=== PATIENT | male | born 1950 | race Caucasian/White ===

== ENCOUNTER 2016-11-10 07:58 | Day surgery (SDC) | payer BC, OTHER ==
[~2016-11-10 07:58] MED LIST: CLINDAMYCIN 900 MG/DEXTROSE 50 ML IV ONE; DEXAMETHASONE 10 MG/ML VIAL IVP ONE; LIDO/EPI 1% **Not for Epidural 20 ML MDV ONE
[2016-11-10] MEDS ORDERED: LIDOCAINE 1% 2 ML INJ ID PRN (08:08)
[2016-11-10] MEDS ORDERED: NS 1,000 ML IV ONE (08:16)
--- NOTE | 2016-11-10 08:22 | PDHPUP ---
History & Physical Update H&P update statement: This history and physical update is based on an assessment of the patient which was completed after admission or registration (within 24 hours), but prior to the surgery/procedure.
--- NOTE | 2016-11-10 08:29 | CPEKG ---
Heart Rate: 79 RR Interval: 759 P-R Interval: 180 QRSD Interval: 164 QT Interval: 436 QTC Interval: 500 P [place]: 72 QRS [place]: -40 T Wave [place]: 21 EKG Severity - ABNORMAL ECG - EKG Impression: SINUS RHYTHM EKG Impression: RBBB AND LAFB EKG Impression: PROBABLE RIGHT VENTRICULAR HYPERTROPHY Electronically Signed By: Iggy Baumann 10-Nov-2016 16:09:23
[2016-11-10] MEDS ORDERED: ALBUTEROL 3 ML DEYVIAL IH ONE (08:35)
[2016-11-10] MEDS ORDERED: CLINDAMYCIN 900 MG/DEXTROSE/50 ML BAG IV ONE (08:37)
--- NOTE | 2016-11-10 08:39 | PDANEPAE ---
ANE History of Present Illness 66 year old male with lesion on vocal cord. ANE Past Medical History Past Medical History: 66 yo male with multi medical problems including: COPD on 4 L O2 continuous NGHIA - does not use his CPAP machine h/o ND in the h/o CHF in 2013 DONALD - Cr 1.9 in 07/04 in setting of PNA, unknown baseline Cr chronic pain on chronic opioid use x many years - spinal herniated discs cervical and lumbar - Cardiovascular History Hx Hypertension: Yes Hx Arrhythmias: Yes Hx Chest Pain: Yes Hx Coronary Artery / Peripheral Vascular Disease: No Hx CHF / Valvular Disease: Yes Hx Palpitations: Yes Cardiovascular History Comment: INTERMITTENT HEART PALPITATIONS. ND S. 04/24/13 CHF - Pulmonary History Hx COPD: Yes Hx Asthma/Reactive Airway Disease: Yes Hx Recent Upper Respiratory Infection: Yes Hx Oxygen in Use at Home: Yes O2 in Use at Home (L/minute): 4 AT REST WITH ACTIVITY 5 CONCENTRATOR Hx Sleep Apnea: Yes Sleep Apnea Screening Result - Last Documented: Positive Pulmonary History Comment: PNEUMONIA 06/2016 AT [facility] - Neurologic History Hx Cerebrovascular Accident: No Hx Seizures: No Hx Dementia: No - Endocrine History Hx Diabetes: No - Renal History Hx Renal Disorders: Yes Renal History Comment: Cr 1.9 in 07/04 - Liver History Hx Hepatic Disorders: No - Neurological & Psychiatric Hx Hx Neurological and Psychiatric Disorders: No - Cancer History Hx Cancer: Yes Cancer History Comment: SKIN - GI History Hx Gastrointestinal Disorders: Yes Gastrointestinal History Comment: GERD - Other Health History Other Health History: ANEMIA. 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 - Chronic Pain History Chronic Pain: Yes (CERVICAL) - Surgical History Prior Surgeries: NONE ANE Review of Systems - Exercise capacity METS (RN): 2 METS - Systems Respiratory: Reports: shortness of breath (chronic) Skin: Reports: lesions (skin cancers) ANE Patient History - Allergies Allergies/Adverse Reactions: No Known Allergies Allergy (Unverified 10/27/16 12:06) - Home Medications Home medications: home medication list seen and reviewed Home Medications: Advair 100/50 (*) BID 10/27/16 [Last Taken Unknown] Amlodipine Besylate DAILY 10/27/16 [Last Taken Unknown] Clonidine PRN 10/27/16 [Last Taken Unknown] Ferrous Sulfate DAILY 10/27/16 [Last Taken Unknown] GABAPENTIN TID 10/27/16 [Last Taken Unknown] Herbal Drugs DAILY 10/27/16 [Last Taken Unknown] Krill Oil DAILY 10/27/16 [Last Taken Unknown] Losartan Potassium DAILY 10/27/16 [Last Taken Unknown] Magnesium Oxide 500 mg DAILY 10/27/16 [Last Taken Unknown] Omeprazole DAILY 10/27/16 [Last Taken Unknown] Oxycodone HCl QID 10/27/16 [Last Taken Unknown] Spiriva Inhaler (RX) DAILY 10/27/16 [Last Taken Unknown] Ventolin Hfa PRN 10/27/16 [Last Taken Unknown] - NPO status NPO Status: no food or drink >8 hours - Anes Hx Anes Hx: no prior problems - Smoking Hx Smoking Status: Former smoker - Family Anes Hx Family Anes Hx: neg - N/A Family Hx Anesthesia Complications: NONE ANE Labs/Vital Signs - Labs - CBC WBC: h/o anemia, no current CBC - Vital Signs Vital Signs: reviewed preoperatively; see RN documention for details Height: 172.72 cm Weight: 77.111 kg
[2016-11-10] MEDS ORDERED: DEXAMETHASONE 10 MG/ML VIAL ONE (08:42)
[2016-11-10 08:50] VITALS: PULSE 80
[2016-11-10] MEDS ORDERED: REMIFENTANIL HCL 1 MG VIAL ONE (08:50)
[2016-11-10] MEDS ORDERED: PROPOFOL/EMULSION 500 MG/50 ML BOTTLE IV ONE (08:50)
[2016-11-10] MEDS ORDERED: ROCURONIUM 100 MG/10 ML VIAL ONE (08:51)
[2016-11-10] MEDS ORDERED: PROPOFOL 200 MG/20 ML VIAL ONE (08:53)
[2016-11-10] MEDS ORDERED: fentaNYL 100 MCG/2 ML INJ ONE (08:58)
[2016-11-10 09:07] LABS: ANION GAP 12 mEq/L (8-16); CALCIUM 9.2 mg/dL (8.5-10.4); CARBON DIOXIDE 26 mEq/l (22-31); CHLORIDE 102 mEq/L (97-110); CREATININE 1.6 mg/dL (0.7-1.3); GLOMERULAR FILTRATION RATE 43; GLUCOSE 95 mg/dL (70-100); POTASSIUM 4.8 mEq/L (3.5-5.2); SODIUM 140 mEq/L (134-144)
[2016-11-10] MEDS ORDERED: PHENYLEPHRINE HCL 100 MCG/ML SYR ONE (09:34)
[2016-11-10] MEDS ORDERED: SUGAMMADEX SODIUM 200 MG/2 ML VIAL IVP ONE ×2 (09:45)
[2016-11-10] MEDS ORDERED: PROMETHAZINE HCL 25 MG/ML INJ IVP PRN (09:53)
[2016-11-10] MEDS ORDERED: NALOXONE HCL 0.4 MG/ML INJ IVP PRN (09:53)
[2016-11-10] MEDS ORDERED: ACETAMINOPHEN 500 MG TAB PO PRN (09:53)
[2016-11-10] MEDS ORDERED: LR 500 ML IV PRN (09:53)
[2016-11-10] MEDS ORDERED: OXYCODONE/APAP 5/325 TAB PO PRN (09:53)
[2016-11-10] MEDS ORDERED: fentaNYL 100 MCG/2 ML INJ IVP PRN (09:53)
[2016-11-10] MEDS ORDERED: ONDANSETRON 4 MG/2 ML VIAL IVP PRN (09:53)
[2016-11-10] MEDS ORDERED: IPRATROPIUM/ALBUTEROL 3 ML DEYVIAL IH PRN (09:54)
--- NOTE | 2016-11-10 10:24 | POSTANESTH ---
Post Anesthetic Evaluation Cardiovascular Status: Normal, Stable Respiratory Status: Normal, Stable Level of Consciousness/Mental Status: Can Participate in Eval, Alert and Oriented Pain Control: Adequate, Prn Tx Ordered Nausea/Vomiting Control: Adequate, Prn Tx Ordered Complications Possibly Related to Anesthesia: None Noted
[2016-11-10 10:58] VITALS: TEMP 97.7
[2016-11-10 11:33] VITALS: BP 131/66; RESP 18; O2SAT 93
--- NOTE | 2016-11-11 18:13 | GOP ---
[f rep st] OPERATIVE REPORT DATE OF OPERATION: 11/10/2016 SURGEON: Mirza Hagan MD ANESTHESIA: General. PREOPERATIVE DIAGNOSIS: Right vocal cord lesion. POSTOPERATIVE DIAGNOSIS: Right vocal cord lesion. PROCEDURE PERFORMED: 1. Direct laryngoscopy. 2. Suspension microlaryngoscopy with excision of right vocal cord lesion. FINDINGS: The patient's oropharynx, hypopharynx and larynx were all evaluated closely. No other ab normalities or lesions were visible or palpable aside from the right vocal cord lesion. SPECIMENS: Right vocal cord lesion. ESTIMATED BLOOD LOSS: Minimal. INDICATIONS: The patient is a 66-year-old man who came in complaining of some left-sided neck pain. He had a surgical procedure done elsewhere and the anesthesiologist noted abnormal appearance of t he right vocal cord. This was evaluated in my office and there was concern for possible cancer. He presents for further evaluation and excisional biopsy. DESCRIPTION OF PROCEDURE: The patient was taken to the OR, positively identified, placed on monitor s and general anesthesia was induced. An Aquaplast dental guard was fashioned, soaked in hot water and then formed over the front teeth to help protect the dentition. The patient was placed in the s niffing position. I then used a Dedo laryngoscope to examine the oral cavity, oropharynx, and hypop harynx. No abnormalities were located. The piriform sinuses were closely evaluated and no abnormal ities were seen. Palpation of the base of tongue was unremarkable. At this point, the patient was placed in suspension and the vocal cord lesion was closely examined. I then injected 0.5 cc of 1% lidocaine with 1:100,000 epinephrine to balloon the lesion off the und erlying vocalis muscle. Using microlaryngoscopy instruments, I then excised the lesion with a very close margin of normal-appearing tissue around it. Adrenaline-soaked pledgets were placed over the vocal cord for several minutes and removed. There were no signs of any bleeding. The patient was t aken out of suspension and the laryngoscope removed along with the dental guard. The anesthesia was discontinued. He was extubated and taken to the postop care unit in good condition having tolerate d the procedure well. COMPLICATIONS: None. /[id number]/MODL
== END 2016-11-10 11:39 | disposition home or self-care (01) ==
LOC: UNDOADMOB 07:58 → FSGY 07:58 → F3E 07:58 → EDSTATUS 08:15 → FSGY 11:39
PROVIDERS: ATTEND Otolaryngology
PROC: 0CBT8ZX Excision of Right Vocal Cord, Via Natural or Artificial Opening Endoscopic, Diagnostic (ICD-10-PCS; principal; 2016-11-10 08:15)
DX: C32.9 Malignant neoplasm of larynx, unspecified (principal); I25.2 Old myocardial infarction; I10 Essential (primary) hypertension; J45.909 Unspecified asthma, uncomplicated; J44.9 Chronic obstructive pulmonary disease, unspecified; K21.9 Gastro-esophageal reflux disease without esophagitis; E78.00 Pure hypercholesterolemia, unspecified; Z87.891 Personal history of nicotine dependence
CPT/HCPCS: J0171; J1100; J2370; J2704; J3010

== ENCOUNTER → 2017-02-22 | Outpatient (CLI) | payer OTHER | LOC: BRMIMAGING 13:18 | PROVIDERS: ATTEND Physician Assistant Medical | DX: J40 Bronchitis, not specified as acute or chronic (principal) | CPT/HCPCS: 71020-PO ==